=== PATIENT | female | born 1985 | race Caucasian/White ===

== ENCOUNTER 2020-07-05 18:18 | Emergency (ER) | payer OTHER, SELFPAY ==
--- NOTE | ~2020-07-05 | CT_ITS ---
EXAMINATION: CT brain wo con INDICATION: Headache COMPARISON: None TECHNIQUE: Standard unenhanced head CT. The dose-length product (DLP) was 529.67 mGy-cm. The mA was a djusted according to patient size. Iterative reconstruction technique was employed. FINDINGS: There is no intracranial hemorrhage, acute infarction, or abnormal mass lesion. The ventric les are normal. There is no abnormal mass effect or midline shift. The ordonez-white matter differentiat ion is normal. The basal cisterns are patent. The orbits are normal. The paranasal sinuses, mastoids and calvarium are normal. IMPRESSION: 1. No acute intracranial abnormality. Reviewed, dictated and finalized at location A.
--- NOTE | ~2020-07-05 | CT_ITS ---
EXAMINATION: CT cervical spine wo con DATE: 07/05/2020 19:57 INDICATION: Neck pain TECHNIQUE: Computed tomography (CT) of the cervical spine was performed without intravenous contrast. The dose-length product (DLP) was 137.40 mGy-cm. Automated exposure control and iterative reconstruc tion technique were employed. COMPARISON: None FINDINGS: There is no fracture, dislocation, or subluxation. The vertebral body heights, alignment, a nd intervertebral disc spaces are normal. The paravertebral soft tissues are unremarkable. The odonto id is intact. IMPRESSION: 1. No acute osseous abnormality. Reviewed, dictated and finalized at location A.
[2020-07-05 19:12] VITALS: BP 111/69; PULSE 69; RESP 16; TEMP 37; O2SAT 100
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
--- NOTE | 2020-07-05 20:02 | PC.NURSE ---
ok to cancel bedside preg per erp Julian Hanley. Pt had ablasion.
[2020-07-05] MEDS: HYDROcodone/acetaminophen (*CRX) 5-325 MG TABLET 1 TAB PO (20:46)
== END 2020-07-05 20:50 | disposition home or self-care (01) ==
PROVIDERS: Emergency Provider Emergency Medicine; PCP Family Medicine
DX: S13.4XXA Sprain of ligaments of cervical spine, initial encounter (principal); V49.40XA Driver injured in collision with unspecified motor vehicles in traffic accident, initial encounter; S09.90XA Unspecified injury of head, initial encounter
CPT/HCPCS: 70450; 72125; 99284; A9270

== ENCOUNTER 2021-04-29 15:43 | Emergency (ER) | payer BC, SELFPAY | END 2021-04-29 18:59 | disposition left against medical advice (07) | LOC: ANHED 15:59 | DX: Z53.21 Procedure and treatment not carried out due to patient leaving prior to being seen by health care provider (principal) | CPT/HCPCS: 99199 ==

== ENCOUNTER 2024-03-03 00:12 | Day surgery (SDC) | payer OTHER, SELFPAY ==
[2024-02-24 08:54] VITALS: BMI 24.2
[2024-03-03 07:55] VITALS: BP 111/76; PULSE 80; RESP 18; TEMP 36.2; O2SAT 100
[2024-03-03] MEDS: LACTATED RINGERS 1,000 ML 150 ML IV CONT (08:03)
--- NOTE | 2024-03-03 08:52 | P.PNAN_ITS ---
Anes - Initial Pre Proc Eval Procedure: Operation Date: 03/03/24 09:00 Proposed Procedures p Colonoscopy - Zac Kitchen MD Date/Time: 03/03/24 08:52 Surgeon: Zac Kitchen MD Pre Op Diagnosis: constipation, fam. hx. malignant neoplasm digestiv Patient Data Age: 38 Gender: F Height: 1.6 m Weight: 62.7 kg Last Vital Signs Temp 97.2 F L 03/03/24 07:55 Pulse 80 03/03/24 07:55 Resp 18 03/03/24 07:55 BP 111/76 03/03/24 07:55 Pulse Ox 100 03/03/24 07:55 O2 Del Method Room Air 03/03/24 07:55 Allergies Allergy/AdvReac Type Severity Reaction Status Date / Time No Known Allergies Allergy Unknown Verified 03/03/24 07:54 Home Medications Medication Instructions Recorded Confirmed Type No Home Medications 02/24/24 02/24/24 History Patient hx anesthesia problems: none Family hx anesthesia problems: none Results Review: All pre-operative results and documents have been reviewed as part of the pre- operative evaluation. [facility] Past Medical History Medical History (Updated 12/05/23 @ 08:15 by Mely Byrne NP) Anemia Chronic anxiety Chronic constipation Chronic depression Fatigue Iron deficiency anemia Migraine without aura and without status migrainosus, not intractable Seasonal allergic rhinitis Surgical History Surgical History History of endometrial ablation Family History Family History Mother Patient's mother is , Onset Age: 42 Family history of cardiovascular disease Social History Social History Smoking status: Never smoker Alcohol intake: current Alcohol use details: Socially Substance use: never Substance use type: does not use Living arrangements: other Additional living arrangements comments: with lit mora Gender identity (if verbalized by the patient): Female Anes - Eval Final PreProcedure Day of Procedure 03/03/24 08:52 Patient weight: normal Heart: regular rate and rhythm Lungs: clear to auscultation Airway: Mallampati scale class II Neurological: alert and oriented Last oral intake: >/= 8 hours ASA classification: II Emergent: no Anesthetic plan: proceed Anesthesia type and monitoring: general GIVS and standard monitoring Results Review: All pre-operative results and documents have been reviewed as part of the pre- operative evaluation. Informed Consent: The patient's anesthetic plan and its attendant risks and benefits were discussed with the patient/family/POA. Questions were solicited and answers provided to the satisfaction of the patient/family/POA.
--- NOTE | 2024-03-03 08:58 | P.HP_ITS ---
History of Present Illness History of Present Illness Consent: Risks, benefits, and alternatives have been discussed and questions answered. Patient agrees to proceed with procedure. Chief complaint: constipation, fam. hx. malignant neoplasm digestiv Narrative: Nereida Rodrigez is a 38 year old female with longstanding constipation, she was using linzess that was helping but unable to afford it. Here for colonoscopy. Review of Systems Review of Systems: All systems reviewed & are unremarkable except as noted in HPI and below PMFSH Past Medical History Medical History (Updated 12/05/23 @ 08:15 by Mely Byrne NP) Anemia Chronic anxiety Chronic constipation Chronic depression Fatigue Iron deficiency anemia Migraine without aura and without status migrainosus, not intractable Seasonal allergic rhinitis Surgical History Surgical History (Reviewed 11/24/23 @ 15:08 by Codey Mejia [facility]) History of endometrial ablation Family History Family History Mother Patient's mother is , Onset Age: 42 Family history of cardiovascular disease Social History Social History (Reviewed 11/24/23 @ 15:08 by Codey Mejia [facility]) Smoking status: Never smoker Alcohol intake: current Alcohol use details: Socially Substance use: never Substance use type: does not use Living arrangements: other Additional living arrangements comments: with lit mora Gender identity (if verbalized by the patient): Female Meds Home Medications and Allergies Home Medications Medication Instructions Recorded Confirmed Type No Home Medications 02/24/24 02/24/24 History Allergies Allergy/AdvReac Type Severity Reaction Status Date / Time No Known Allergies Allergy Unknown Verified 03/03/24 07:54 Vital Signs Vital Signs - 24 hr 03/03/24 07:55 Temperature 97.2 F L Pulse Rate 80 Respiratory Rate 18 Blood Pressure 111/76 Pulse Oximetry 100 Oxygen Delivery Room Air Exam Const: General: comfortable and no acute distress HENMT: Face/Nose/Sinus: Normal nares present Eyes: General: appearance normal, both eyes and all related structures Neck: Neck: no JVD Resp: Auscultation: clear to auscultation bilaterally Cardio: Rate: regular rate Rhythm: regular rhythm GI: Inspection: non-distended GI Palp: Yes Soft to palpation Skin: General skin exam: normal color Neuro: General: gait normal Speech: normal speech Extrem: General: normal to inspection Psych: Mental Status: mental status grossly normal Assessment and Plan Assessment and plan (1) Chronic constipation: Code(s): K59.09 - Other constipation Status: Acute Assessment and Plan: colonoscopy
[2024-03-03 09:20] VITALS: BP 91/35; PULSE 76; RESP 18; O2SAT 100
[2024-03-03 09:30] VITALS: BP 72/47; PULSE 70; RESP 19; O2SAT 100
[2024-03-03 09:40] VITALS: BP 106/57; PULSE 71; RESP 20; O2SAT 100
== END 2024-03-03 09:48 | disposition home or self-care (01) ==
PROVIDERS: PCP Nurse Practitioner Family; Visit Provider Internal Medicine Gastroenterology
PROC: 0DJD8ZZ Inspection of Lower Intestinal Tract, Via Natural or Artificial Opening Endoscopic (ICD-10-PCS; CPT 45378; principal; 2024-03-03 09:00)
DX: K59.09 Other constipation (principal); K64.8 Other hemorrhoids; Z80.0 Family history of malignant neoplasm of digestive organs
CPT/HCPCS: 45378; J2704; J7120